=== PATIENT | female | born 1990 | race Caucasian/White ===

== ENCOUNTER 2019-02-25 14:37 | Emergency (ER) | payer OTHER ==
--- OUTSIDE RECORDS SUMMARY | 2019-02-25 14:50 | XMS REPORT | Continuity of Care Document ---
:1990 External Reference #:[id number] Author Name Deon Tillman NP (transmitted by agent of provider Latoya Li) Address [address] [place] [address], [place] [address] Care Team Providers Name Role Phone Patricia Camejo MD - Internal Medicine Care Team Information Electronics Engineering Technician [phone] Problems Description No Information Available Social History Type Date Description Comments Sex Unknown Allergies, Adverse Reactions, Alerts Description No Known Drug Allergies Medications Active Medications SIG Qnty Indications Ordering Date Provider Bupropion 1 by mouth every 60tabs F32.89 Deon Tillman NP 02/16/2019 Hydrochloride ER (XL) day. If tolerated after 1 week 150mg Tablets ER 24HR increase to two tablets daily. History Medications No Active Medications Unknown 02/16/2019 - 02/16/2019 Immunizations Description No Information Available Vital Signs Date Vital Result Comment 02/16/2019 11:46am Height 65 inches 5'5" Weight 139.12 lb Heart Rate 57 /min BP Systolic 121 mmHg BP Diastolic 78 mmHg Body Temperature 97.8 F O2 % BldC Oximetry 98 % BMI (Body Mass Index) 23.1 kg/m2 Results Description No Information Available Procedures Description No Information Available Medical Devices Description No Information Available Encounters Description No Information Available Assessments Date Code Description Provider 02/16/2019 R53.83 Other fatigue Deon Tillman NP 02/16/2019 F32.89 Other specified depressive episodes Deon Tillman NP 02/16/2019 N92.6 Irregular menstruation, unspecified Deon Tillman NP 02/16/2019 Z13.220 Encounter for screening for lipoid disorders Deon Tillman NP Plan of Treatment Future Appointment(s):03/16/2019 8:40 am - [facility] - Deon Tillman, NPR53.83 Other fatigueComments:I am ordering some lab work to evaluate your symptoms. I will notify you of the results.Follow up:LARRY: Dr. João Salinas, [facility] Aleydajame Ortegay, [facility] (certified nurses aide)F32.89 Other specified depressive episodesNew Medication:Bupropion Hydrochloride ER (XL) 150 mg - 1 by mouth every day. If tolerated after 1 week increase totwo tablets daily.Comments: Start taking the bupropion daily.Follow up:4 fpcgnD14.6 Irregular menstruation, unspecifiedComments:Let me know the name of the control you were taking and I will prescribe that. If there is no change I will refer you to a woman's health specialist.Z13.220 Encounter for screening for lipoid disorders Functional Status Description No Information Available Mental Status Description No Information Available Referrals Description No Information Available
[2019-02-25] MEDS ORDERED: Lorazepam PYXIS KEY PRN ×2 (15:01→15:07)
[2019-02-25] MEDS ORDERED: LORazepam INJ* 2 MG/ML 1 ML VIAL IV PUSH ONE ×2 (15:01→15:07)
--- NOTE | 2019-02-25 15:03 | UC ---
Psychiatric Complaint HPI - HPI Summary HPI Summary: The patient is a 28 yo female that presents here for evaluation of a bupropion XL She states she was seen by her PCP last week and started on bupropion XL 150 mg daily for anxiety and depression Last PM she started drinking about 8PM until 2AM drinking one bottle of wine and some vodka. She took 8 bupropion XL 150mg pills between about 10 PM and 2 AM. She was not trying to harm herself but was seeing if it would make her happy. She may have passed out around 2 briefly. She has been up since then. She has had palpitations and tremors as well as a dry mouth. She says her symptoms have improved slightly over the past hour. No dyspnea or NICHOLE. No n/v/d - History Of Current Complaint Chief Complaint: EDOverdose Stated Complaint: POSSIBLE OVERDOSE Time Seen by Provider: 02/25/19 14:51 Hx Obtained From: Patient Onset/Duration: Gradual Onset Timing: Constant Severity Initially: Moderate Severity Currently: Mild Character: Anxious Aggravating Factor(s): Alcohol Use, Other - see HPI Alleviating Factor(s): Nothing Related History: Positive For: Prior Psychiatric Issues Ingestion History: Type/Name Of Drug - bupropion XL, Approximate Time Of Ingestion - btw 10PM and 2AM ( 8 150mg tabs) - Allergies/Home Medications Allergies/Adverse Reactions: Allergies Allergy/AdvReac Type Severity Reaction Status Date / Time No Known Allergies Allergy Verified 10/10/15 11:35 PMH/Surg Hx/FS Hx/Imm Hx Previously Healthy: Yes Psychological History: Anxiety, Depression - Surgical History Surgical History: None - Family History Known Family History: Positive: None, Unknown, Other - brother with psychiatric issues - Social History Alcohol Use: Weekly Substance Use Type: Cocaine, Heroin, Synthetic Drugs, Other Substance Use Comment - Amount & Last Used: reports hx of cocaine, meth, amphetamine, heroin, crack/ no use for past mo Smoking Status (MU): Light Every Day Tobacco Smoker Type: Cigarettes Amount Used/How Often: one cigarette less than once a week Have You Smoked in the Last Year: Yes Household Exposure Type: Cigarettes - Immunization History Most Recent Influenza Vaccination: 2014 Most Recent Tetanus Shot: UTD Most Recent Pneumonia Vaccination: has not received Review of Systems All Other Systems Reviewed And Are Negative: Yes Constitutional: Positive: Negative Skin: Positive: Negative Eyes: Positive: Negative ENT: Positive: Other - dry mouth Respiratory: Positive: Negative Cardiovascular: Positive: Palpitations Gastrointestinal: Positive: Negative Genitourinary: Positive: Negative Motor: Positive: Negative Neurovascular: Positive: Negative Musculoskeletal: Positive: Negative Psychological: Positive: Anxious Physical Exam Triage Information Reviewed: Yes Appearance: No Pain Distress, Well-Nourished Vital Signs: Initial Vital Signs Temp 100 F 02/25/19 14:56 Pulse 100 02/25/19 14:56 Resp 18 02/25/19 14:56 BP 147/98 02/25/19 14:56 Pulse Ox 100 02/25/19 14:56 Vital Signs Reviewed: Yes Eyes: Positive: Conjunctiva Clear ENT: Positive: Hearing grossly normal, Uvula midline. Negative: Pharyngeal erythema, Nasal congestion, Nasal drainage, Trismus, Muffled voice, Hoarse voice Dental Exam: Normal Neck: Positive: Supple Respiratory: Positive: Lungs clear, Normal breath sounds, No respiratory distress, No accessory muscle use Cardiovascular: Positive: RRR, Tachycardia Abdomen Description: Positive: Nontender Bowel Sounds: Positive: Present Musculoskeletal: Positive: ROM Intact, No Edema Neurological: Positive: Alert, Other: - GCS15/15, hyper reflexic Psychological Exam: Normal Skin Exam: Normal Diagnostics - EKG Cardiac Rate: NL Cardiac Rhythm: Sinus: Normal Ectopy: None ST Segment: Normal EKG Comparison: No Significant Change Psych Complaint Course/Dx - Course Course Of Treatment: D/W poison control they state at this dose she is at risk for seizures and cardiac issues and needs 24 hour monitoring D/W ER attending will transfer to [facility] [place] - Differential Dx/Diagnosis Provider Diagnosis: Overdose Discharge ED - Sign-Out/Discharge Documenting (check all that apply): Patient Departure All imaging exams completed and their final reports reviewed: No Studies - Discharge Plan Condition: Stable Disposition: TRANS HIGHER L OF CARE FAC Referrals: Deon Tillman NP [Primary Care Provider] - - Billing Disposition and Condition Condition: STABLE Disposition: Trans Higher Lvl of Care Fac
[2019-02-25] MEDS ORDERED: Lorazepam PYXIS KEY ONE (15:05)
[2019-02-25] MEDS ORDERED: NS 0.9% 1000 ML** 1,000 ML IV ONE (15:18)
[2019-02-25 15:22] VITALS: BP 141/81
== END 2019-02-25 16:00 | disposition short-term general hospital (02) ==
LOC: UCEAST 14:37
DX: T43.291A Poisoning by other antidepressants, accidental (unintentional), initial encounter (principal); F17.210 Nicotine dependence, cigarettes, uncomplicated; F41.9 Anxiety disorder, unspecified; Y92.9 Unspecified place or not applicable
CPT/HCPCS: 93005; J2060

== ENCOUNTER 2019-02-25 15:57 | Observation (INO) | payer OTHER ==
[2019-02-25] MEDS ORDERED: NS 0.9% 1000 ML** 1,000 ML IV ONE (16:06)
--- NOTE | 2019-02-25 16:10 | ED ---
Substance Abuse/Use - HPI Summary HPI Summary: This patient is a 28 year old F brought to [facility] by EMS with a chief complaint of substance overdose since last midnight, 02/25/19. Patient reports she took 8 pills of Wellbutrin (which she started taking for anxiety) (took for about a week so far) when she was intoxicated to see how it would feel. Pt reports she could not feel her legs earlier today and felt near-syncopal. She went to urgent care, where poison control was contacted and she was sent to ED for eval. Pt reports she never took more medications than prescribed in the past. Denies SI/HI. Pt reports admission 2 years ago due to psychiatric reasons. Hx seizure (was not put on medication). Pt currently has temp of 100. Denies infectious symptoms. - History Of Current Complaint Stated Complaint: POSS OVERDOSE PER EMS Time Seen by Provider: 02/25/19 15:59 Hx Obtained From: Patient Hx Last Menstrual Period: 1 YEAR Ingestion History: Type/Name Of Drug - Wellbutrin, Amount Ingested - 8 pills, Approximate Time Of Ingestion - midnight Overdose Characteristics: Oral Aggravating Factor(s): Nothing Alleviating Factor(s): Nothing Associated Signs And Symptoms: Other: - near syncope, numbness in legs, fever - Allergies/Home Medications Allergies/Adverse Reactions: Allergies Allergy/AdvReac Type Severity Reaction Status Date / Time No Known Allergies Allergy Verified 02/25/19 16:05 PMH/Surg Hx/FS Hx/Imm Hx Endocrine/Hematology History: Denies: Hx Diabetes, Hx Thyroid Disease Cardiovascular History: Denies: Hx Hypertension Respiratory History: Denies: Hx Asthma, Hx Chronic Obstructive Pulmonary Disease (COPD) GI History: Denies: Hx Ulcer Sensory History: Reports: Hx Contacts or Glasses - glasses for long distance/ driving Opthamlomology History: Reports: Hx Contacts or Glasses - glasses for long distance/driving Neurological History: Reports: Hx Migraine - last one four months ago Psychiatric History: Reports: Hx Anxiety, Hx Depression, Hx Community Mental Health Tx - recently connected with outpatient tx, Hx Substance Abuse Denies: Hx Attention Deficit Hyperactivity Disorder, Hx Eating Disorder, Hx Panic Disorder, Hx Post Traumatic Stress Disorder, Hx Schizophrenia, Hx Bipolar Disorder, Hx of Violent Episodes Against Others Comment Only: Hx Inpatient Treatment - this is patient's first admission, Hx Suicide Attempt - currently admitted for first admit Infectious Disease History: Denies: Hx Hepatitis, Hx Human Immunodeficiency Virus (HIV) - Family History Known Family History: Positive: None, Unknown, Other - brother with psychiatric issues - Social History Alcohol Use: Weekly Hx Substance Use: Yes Substance Use Type: Reports: Cocaine, Heroin, Synthetic Drugs, Other Substance Use Comment - Amount & Last Used: reports hx of cocaine, meth, amphetamine, heroin, crack/ no use for past mo Hx Tobacco Use: Yes Smoking Status (MU): Light Every Day Tobacco Smoker Type: Cigarettes Amount Used/How Often: one cigarette less than once a week Have You Smoked in the Last Year: Yes Review of Systems Positive: Fever Neurological: Other - near-syncope Positive: Numbness - in legs Positive: Other - denies SI/HI, substance overdose All Other Systems Reviewed And Are Negative: Yes Physical Exam - Summary Physical Exam Summary: Constitutional: Well-developed, Well-nourished, Alert. (-) Distressed Skin: Warm, Dry HENT: Normocephalic; Atraumatic Eyes: Conjunctiva normal Neck: Musculoskeletal ROM normal neck. (-) JVD, (-) Stridor, (-) Nuchal rigidity Cardio: Rhythm regular, rate normal, Heart sounds normal; Intact distal pulses; Radial pulses are 2+ and symmetric. (-) Murmur Pulmonary/Chest wall: Effort normal. (-) Respiratory distress, (-) Wheezes, (-) Rales Abd: Soft, (-) tenderness, (-) Distension, (-) Guarding, (-) Rebound Musculoskeletal: (-) Edema Lymph: (-) Cervical adenopathy Neuro: Alert, Oriented x3, no clonus. Psych: Mood and affect Normal, denies SI Triage Information Reviewed: Yes Vital Signs Reviewed: Yes Procedures - Sedation Patient Received Moderate/Deep Sedation with Procedure: No Diagnostics - Laboratory Result Diagrams: 02/26/19 07:52 02/26/19 07:52 Lab Statement: Any lab studies that have been ordered have been reviewed, and results considered in the medical decision making process. Course/Dx - Course Course Of Treatment: 28-year-old female who presents with wellbutrin overdose. No e/o serotonin syndrome on exam (wellbutrin is not SSRI). 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 If QTC >500 give magnesium 2 g. If QRS prolonged, call poison control. Needs 24 hour observation, would benefit from psychiatric evaluation afterwards. - Diagnoses Provider Diagnoses: Overdose - Physician Notifications Discussed Care Of Patient With: Ijeoma Jordan Time Discussed With Above Provider: 17:30 Instructed by Provider To: Admit As Inpatient Discharge ED - Sign-Out/Discharge Documenting (check all that apply): Patient Departure - admit - Discharge Plan Condition: Stable Disposition: ADMITTED TO [facility] - Billing Disposition and Condition Condition: STABLE Disposition: Admitted to [facility] - Attestation Statements Document Initiated by Scribe: Yes Documenting Scribe: Christa Maher Provider For Whom Chaz is Documenting (Include Credential): Dr. Kyle Wellington MD Scribe Attestation: Christa Collazo, scribed for Dr. Kyle Wellington MD on 02/26/19 at 0952. Scribe Documentation Reviewed: Yes Provider Attestation: The documentation as recorded by the Christa anand accurately reflects the service I personally performed and the decisions made by me, Dr. Kyle Wellington MD Status of Scribe Document: Viewed
[2019-02-25 17:06] LABS: ABS Lymphocytes 1.3 10^3/ul (1.0-4.8); ABS Monocytes 0.6 10^3/ul (0-0.8); Eosinophil % 0.1 %; Hematocrit 37 % (35-47); Hemoglobin 12.1 g/dL (12.0-16.0); Lymphocyte % 16.5 %; Mean Corpuscular HGB Conc 33 g/dL (31-36); Mean Corpuscular Hemoglobin 28 pg (27-31); Mean Corpuscular Volume 86 fL (80-97); Mean Platelet Volume 8.5 fL (7.4-10.4); Nucleated Red Blood Cells % 0.1; Platelet Count 232 10^3/uL (150-450); Red Blood Count 4.28 10^6 /uL (3.70-4.87); Red Cell Distribution Width 17 % (10-15); White Blood Count 7.9 10^3/uL (3.5-10.8)
[2019-02-25 17:22] LABS: Acetaminophen < 15 mcg/mL; Alcohol < 10 mg/dL (<10); Salicylate < 2.50 mg/dL (<30)
[2019-02-25 17:25] LABS: ALT 16 U/L (7-52); AST 15 U/L (13-39); Albumin 4.3 g/dL (3.2-5.2); Albumin/Globulin Ratio 1.9 (1-3); Alkaline Phosphatase 44 U/L (34-104); Anion Gap 7 mmol/L (2-11); BUN/Creatinine Ratio 12.3 (8-20); Blood Urea Nitrogen 8 mg/dL (6-24); CO2 Carbon Dioxide 26 mmol/L (22-32); Calcium 9.2 mg/dL (8.6-10.3); Chloride 107 mmol/L (101-111); EGFR African American 133.3 (>60); EGFR Non-African American 110.2 (>60); Globulin 2.3 g/dL (2-4); Glucose 93 mg/dL (70-100); Potassium 3.7 mmol/L (3.5-5.0); Sodium 140 mmol/L (135-145); Total Protein 6.6 g/dL (6.4-8.9)
[2019-02-25 17:31] LABS: HCG Pregnancy < 0.60 mIU/mL
[2019-02-25 17:37] LABS: Urine Appearance Clear; Urine Bilirubin Negative (Negative); Urine Blood Negative (Negative); Urine Color Straw; Urine Glucose Negative (Negative); Urine Ketones Negative (Negative); Urine Nitrite Negative (Negative); Urine Protein Negative (Negative); Urine Specific Gravity 1.003 (1.010-1.030); Urine Urobilinogen Negative (Negative)
[2019-02-25 17:59] LABS: Urine Benzodiazepine Screen None Detected (None Detect); Urine Opiates Screen None Detected (None Detect)
[2019-02-25] MEDS ORDERED: LORazepam INJ* 2 MG/ML 1 ML VIAL IV PUSH PRN (18:10)
[2019-02-25] MEDS ORDERED: Lorazepam PYXIS KEY PRN (18:10)
--- NOTE | 2019-02-25 21:39 | HP ---
CC: Deon Tillman NP * HISTORY AND PHYSICAL: DATE OF ADMISSION: 02/25/19 PRIMARY CARE PROVIDER: Deon Tillman NP ATTENDING PHYSICIAN: Dr. Ijeoma Jordan.* (DICTATED BY AMINTA ZELAYA NP) CHIEF COMPLAINT: Shakiness and numbness. HISTORY OF PRESENT ILLNESS: Ms. Parham is a 28-year-old female with a past medical history of anxiety, depression, and migraines, who presented to the emergency room today after an intentional overdose last night. The patient reports that she drank 1 bottle of wine and unknown amount of vodka. She does admit that she is a binge drinker, though only drinks approximately once per month. When she was intoxicated, she took a handful of bupropion in a "drunken impulse." She took the medication with the intention of getting high and having "fun." The patient denies any suicidal ideations and has no history of suicidal ideations or suicide attempts. She did count her pills and notes that she took approximately 1200 mg of bupropion at some point last night; the exact time is unclear. This morning, she woke and felt very shaky. She felt as though her legs were numb and she was having somewhat of a difficult time walking. Walking and pacing did relieve the numbness, though as soon as she stopped walking, the numbness returned. She was also feeling quite shaky, had a very difficult time putting her shoes on. She does describe some feelings of lightheadedness and possible near syncope. She denies any chest pain, palpitations, shortness of breath, neurological deficits, or visual complaints. In the emergency room, the patient had lab work, which was unremarkable. Vital signs were noted to be stable. Poison Control was contacted and they recommended monitoring the patient on telemetry for at least 24 hours; the start time of about being 1500 today. Additional instructions were to give 2 g of magnesium sulfate if the QTc is greater than 500 and then call Poison Control. Additionally if the QRS widens, Poison Control will need to be contacted. Because of the need for overnight monitoring, the hospitalist service was asked to evaluate for admission. PAST MEDICAL HISTORY: 1. Anxiety. 2. Depression. 3. Migraines. PAST SURGICAL HISTORY: None. HOME MEDICATIONS: 1. Bupropion XL 150 mg p.o. daily. 2. Microgestin FE 05/21 one tab p.o. daily. ALLERGIES: No known drug allergies. FAMILY HISTORY: The patient reports a brother with mental illness and some distant family history of alcoholism. Family history is otherwise noncontributory. SOCIAL HISTORY: The patient denies any tobacco use. She reports binge drinking approximately once per month. She denies any current drug use, though has used "almost everything" in the past. She did admit to cocaine, methamphetamine, and heroin use in the past. She currently works in [employer] at [employer] and lives alone in an apartment. The patient's mother will be her surrogate decision maker in the event she is unable to make her own decisions. REVIEW OF SYSTEMS: An 11-point review of systems was performed and all the pertinent positive and negative findings are in the HPI. All other systems are negative. PHYSICAL EXAMINATION GENERAL: Ms. Parham is a well-developed, well-nourished, young, adult female, sitting in bed, in no acute distress. She appears her stated age, she is calm and cooperative. VITAL SIGNS: Temp 100.0, heart rate 67, respiratory rate 25, oxygen saturation 100% on room air, and blood pressure 133/85. HEENT: Head is atraumatic, normocephalic. Visual [place] are grossly intact. Pupils are equal, round, and reactive to light and accommodation. Extraocular movements intact. RESPIRATORY: Symmetrical chest expansion. Lungs clear to auscultation throughout. No rhonchi, wheezes, or rubs. CARDIOVASCULAR: Regular rate and rhythm. S1, S2 present. No murmurs, rubs, or gallops. EXTREMITIES: Skin is warm and smooth bilaterally. No edema. NEURO: Awake, alert, and oriented x4. Cranial nerves II through XII grossly intact. Moves all extremities. Strength is 5/5 in upper and lower extremities bilaterally. There are no focal neurological deficits. DIAGNOSTIC STUDIES/LAB DATA: WBC 7.9, RBC 4.28, hemoglobin 12.1, hematocrit 37 , platelets 232. Sodium 140, potassium 3.7, chloride 107, carbon dioxide 26, BUN 8, creatinine 0.65, glucose 93, lactic acid 2. Urinalysis unremarkable. Urine tox screen unremarkable including salicylates, acetaminophen, and alcohol. EKG shows normal sinus rhythm with a rate of 75, no ST changes, QTc 470. ASSESSMENT AND PLAN: Ms. Parham is a 28-year-old female with past medical history of anxiety, depression, and migraines, who presents to the emergency room today after an intentional overdose of bupropion. The patient will be admitted to observation for: 1. Overdose. The patient adamantly denies any suicidal ideations or attempts and reports that she was just taking the medication for "fun." She additionally has no history of suicidal ideation or attempt, so at this point, I do not think she needs any one-to-one monitoring. Per Poison Control recommendations, the patient will be monitored for at least 24 hours, which started today at 1500. I have ordered p.r.n. Ativan for any tremors or seizure activity. An EKG will be repeated in 4 hours and I have ordered an EKG for 2000 tonight. On the EKG, if the patient's QTc is greater than 500, she will need to be given 2 g of magnesium sulfate and Poison Control will need to be contacted. Additionally, if her QRS widens at all, Poison Control will need to be contacted. I have also ordered seizure precautions as she is at increased risk for seizures. I have ordered a psych consult for tomorrow, though as long as they do not want to admit her to Psych, I anticipate that she will be discharged tomorrow. 2. Anxiety and depression. At this point, I will obviously hold the patient's bupropion. I will speak with Psychiatry tomorrow to determine if it is appropriate for her to resume this medication. 3. FEN. The patient does not require any fluid resuscitation or electrolyte repletion. I have ordered a regular diet. 4. Code status. The patient will be a full code. 5. DVT prophylaxis. According to the DVT Risk Assessment, the patient scores a 1, putting her at low risk. We will utilize ambulation for DVT prophylaxis. TIME SPENT: Approximately 40 minutes was spent on this admission, approximately half of that time spent [id number] with the patient obtaining my history, performing my physical exam, and reviewing the plan of care. This case has been reviewed with my attending, Dr. Jordan, who is in agreement with the plan of care. AMINTA ZELAYA, DIPLOMATIC INTERPRETER [id number]/[facility] #: [id number] FANI
[2019-02-26 08:12] LABS: ABS Lymphocytes 1.6 10^3/ul (1.0-4.8); ABS Monocytes 0.4 10^3/ul (0-0.8); ABS Neutrophils 2.9 10^3/ul (1.5-7.7); Eosinophil % 0.6 %; Hematocrit 36 % (35-47); Hemoglobin 11.8 g/dL (12.0-16.0); Lymphocyte % 31.5 %; Mean Corpuscular HGB Conc 33 g/dL (31-36); Mean Corpuscular Hemoglobin 28 pg (27-31); Mean Corpuscular Volume 86 fL (80-97); Mean Platelet Volume 8.4 fL (7.4-10.4); Nucleated Red Blood Cells % 0.1; Platelet Count 204 10^3/uL (150-450); Red Blood Count 4.19 10^6 /uL (3.70-4.87); Red Cell Distribution Width 16 % (10-15)
[2019-02-26 08:24] LABS: Albumin 4.1 g/dL (3.2-5.2); Albumin/Globulin Ratio 1.8 (1-3); BUN/Creatinine Ratio 9.9 (8-20); Calcium 9.2 mg/dL (8.6-10.3); EGFR African American 120.4 (>60); EGFR Non-African American 99.5 (>60); Globulin 2.3 g/dL (2-4); Potassium 3.8 mmol/L (3.5-5.0); Total Bilirubin 0.7 mg/dL (0.2-1.0); Total Protein 6.4 g/dL (6.4-8.9)
[2019-02-26 17:01] VITALS: BP 115/76
--- NOTE | 2019-02-26 18:25 | CONS ---
CONSULTATION REPORT: DATE OF CONSULT: 02/26/19 ATTENDING PHYSICIAN: Kiera Baker NP CONSULTING PHYSICIAN: Dr. Lew Crawley. REASON FOR CONSULT: Overdose on Wellbutrin. SUBJECTIVE HISTORY: The patient is a 28-year-old single white female with a known history of polysubstance dependence, who arrived at the ER reporting that she had drank a bottle of wine and some vodka the previous evening and while intoxicated took a handful of bupropion pills as a "drunken impulse." She denied any intention to harm herself; however, she was feeling shaky and numb and was sent from [facility] for further monitoring. At this point, the primary team is wondering what type of services would be required moving forward. I did meet with Ms. Parham on the telemetry unit of [address] [place] [address] where she presented as calm, cooperative, and somewhat embarrassed about her overdose. She indicates that while she was intoxicated, she found her bottle of Wellbutrin , which had just been prescribed 1 week ago by her primary care provider who is Deon Tillman. She wondered herself what it would be like if she took some. She thought that she only took 3 or 4; however, upon recounting her bottle, she now believes that she took 8. The patient does not recall any type of euphoric effect, but felt shaky when she sobered up and decided to come to [facility] from there. She steadfastly denies any suicidal ideations and states that life has been going good, although she continues to episodically binge on large amounts of alcohol. She indicates that she will do this 1 to 2 times per month. Although she has a significant history of illicit substance abuse in the past, she denies recent use of illegal drugs. The patient denies symptoms of depression, han, or psychosis. She is interested in perhaps utilizing a trial of naltrexone to reduce her dependence on alcohol. She is also willing to receive outpatient substance abuse treatment. PAST PSYCHIATRIC HISTORY: Ms. Parham had 1 previous brief psychiatric admission on the [facility] in October 2015 under the service of Dr. Naveen Goodwin following suicidal gesture made when she was similarly intoxicated. In the past, she had been treated with sertraline. More recently, she was just started on Wellbutrin XL 150 mg p.o. q.a.m. by her primary care provider, Deon Tillman. She denies any further interactions with the mental health system. SUBSTANCE ABUSE HISTORY: Quite extensive. The patient started abusing alcohol at the age of 15. At times, it has been heavy and daily, but has not necessarily led to severe consequences. She smoked marijuana fairly frequently in her teenage years and got involved in heavier drugs in college including crack cocaine, amphetamines, Adderall by diversion, and heroin intranasally. She has also used ecstasy and hallucinogenics like LSD and mushrooms between 30 and 40 times in her life. She denies any previous history of drug rehabilitation. PAST MEDICAL HISTORY: Significant for migraine headache. CURRENT MEDICATIONS: Include: 1. Bupropion XL 150 mg daily. 2. Microgestin FE 05/21 one tab p.o. daily. ALLERGIES: She has no known drug allergies. FAMILY HISTORY: The patient has a brother who has had anxiety and has been treated with sertraline. SOCIAL HISTORY: The patient is from [place] and came to the [facility] for college where she graduated at [employer]. Her parents are still together. She has 1 brother whom she still has a relationship with. 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 She lives in [place] in an apartment. She has no history of service. MENTAL STATUS EXAM: The patient is a thin-framed female in her mid 20s who is calm, cooperative, clean, polite. Speech has normal rate, tone, and volume. Mood appears to be euthymic with a full affect. Thought process is linear and goal directed. Thought content is significant for her desire to initiate naltrexone therapy for drinking. She denies suicidal or homicidal ideations. She denies auditory or visual hallucinations. Insight and judgment appear to be fair given her willingness to pursue outpatient substance abuse services. Cognitively, she is awake and alert with what would appear to be an average intellect. DIAGNOSES: Rock I: Alcohol use disorder. Rock II: Deferred. IMPRESSION: The patient is a 28-year-old single white female, college graduate with a history of polysubstance dependence, who has been largely abstinent from illicit drugs; however, she continues to abuse alcohol. She apparently ingested several tablets of recently prescribed Wellbutrin in an attempt to get high. At this time, she is inquiring about the use of naltrexone to reduce urges to consume alcohol and she is willing to be referred outpatient services for substance misuse. RECOMMENDATIONS TO PRIMARY TEAM: Psychiatry feels that the patient is psychiatrically clear for discharge. We see no justification for enhanced monitoring or psychiatric hospitalization. She is already being seen by the social work service and we recommend referral to the [facility] so that she can get alcohol-related services including perhaps initiation of naltrexone therapy for alcoholism. At this time, Psychiatry is signing off; however, we can be reconsulted in the event of any significant changes in the patient's presentation. Thank you for the consultation. [id number]/CPS #: [id number] FANI
--- NOTE | 2019-02-27 01:13 | DS ---
CC: Deon Tillman NP * DISCHARGE SUMMARY: DATE OF ADMISSION: 02/25/19 DATE OF DISCHARGE: 02/26/19 PRIMARY CARE PROVIDER: Deon Tillman NP. ATTENDING PHYSICIAN: Dr. Lillie Mclean.* (DICTATED BY AMINTA ZELAYA NP) PRIMARY DIAGNOSIS: Intentional overdose of bupropion. SECONDARY DIAGNOSES: 1. Anxiety. 2. Depression. 3. Migraines. STUDIES WHILE IN THE HOSPITAL: EKG on 02/25/19 shows normal sinus rhythm with a rate of 75, QTc 470. Next EKG on 02/25/19 shows normal sinus rhythm with a rate of 66, QTc 471. Next EKG on 02/26/19 shows normal sinus rhythm with a rate of 61, QTc 438. HISTORY OF PRESENT ILLNESS AND HOSPITAL COURSE: Ms. Parham is a 28-year-old female with past medical history of anxiety, depression, and migraines, who presented to the emergency room on 02/25/19 with complaints of shakiness and numbness. Please see the history and physical by myself for complete summary of the events leading up to this hospitalization. In short, the patient admitted to being a binge drinker and the night prior to presenting to the emergency room she did binge drink and in her intoxicated state decided to take a "handful" of bupropion with the intention of getting high. She denied any suicidal ideation or attempt. In the emergency room, Poison Control was contacted and they did recommend 24 hours of observation to monitor for any PERIOPERATIVE NURSE or cardiac effects. She was admitted by the hospitalist service. The patient had an uneventful night and was monitored on telemetry without any evidence of arrhythmias. Repeat EKGs were preformed to ensure that QTc was not greater than 500. The subjective shakiness that she was experiencing yesterday has since resolved. There have been no other neurological symptoms. Dr. Crawley from Psychiatry did see the patient today in consultation and he did not have any concerns about this being a suicide attempt. He felt as though it was reasonable for her to be discharged and did not make any recommendations for medication changes, although did indicate that she had some interest in starting disulfiram. On exam, she is alert and oriented x4. She has no focal neurological deficits. Heart: Regular rate and rhythm without Murmurs, rubs, or gallops. Lungs are clear to auscultation without rhonchi, wheezes, or rales. Physical exam is otherwise benign. Ms. Parham is stable for discharge today. Most recent vital signs are as follows: Temp 98.3, heart rate 61, respiratory rate 16, oxygen saturation 99% on room air, blood pressure 115/76. DISCHARGE MEDICATIONS: New medications: Disulfiram 250 mg p.o. daily. Continued medications: 1. Buspirone XL 150 mg p.o. daily. 2. Microgestin FE 1 tab p.o. daily. DISCHARGE PLAN: Ms. Parham will be discharged home. ACTIVITY: Will be as tolerated. DIET: Will be regular as tolerated. Per the patient's request, I have sent in a small supply of disulfiram and she is aware that she will need to follow up with her PCP for monitoring while she is on this medication and for any additional refills. She can continue her other usual medications. She was seen by our social workers who have provided her with some outpatient resources for substance and alcohol abuse. The patient should follow up with her primary care provider in the next 4 to 7 days. She has been advised to return to the emergency room or nearest hospital for any worsening of symptoms, shortness of breath, lightheadedness, dizziness, chest discomfort, high fevers, chills, night sweats, loss of consciousness, or any other worrisome signs or symptoms. DISCHARGE CONDITION: Stable. DISCHARGE DISPOSITION: Home. This is a summarized report of a complex medical history and hospital stay. For further details, please see the entire medical record. TIME SPENT: Approximately 40 minutes were spent on this discharge. AMINTA ZELAYA NP [id number]/CPS #: [id number] FANI
== END 2019-02-26 18:50 | disposition home or self-care (01) ==
LOC: ED 15:57 → MEDTELE 17:51
PROVIDERS: ADMIT Internal Medicine; ATTEND Internal Medicine
DX: T43.292A Poisoning by other antidepressants, intentional self-harm, initial encounter (principal); Y92.9 Unspecified place or not applicable; F17.210 Nicotine dependence, cigarettes, uncomplicated; F41.9 Anxiety disorder, unspecified; F32.9 Major depressive disorder, single episode, unspecified; G43.909 Migraine, unspecified, not intractable, without status migrainosus; R55 Syncope and collapse; F19.20 Other psychoactive substance dependence, uncomplicated
CPT/HCPCS: 36415; 80053; 80307; 80320; 80329; 81003; 83605; 84702; 85025; 93005; 96360; 99284; G0378; G0480

== ENCOUNTER 2019-06-10 03:02 | Emergency (ER) | payer OTHER ==
[2019-06-10 03:11] VITALS: BP 127/91
== END 2019-06-10 03:39 | disposition left against medical advice (07) ==
LOC: ED 03:02
DX: Z53.21 Procedure and treatment not carried out due to patient leaving prior to being seen by health care provider (principal); R11.10 Vomiting, unspecified
CPT/HCPCS: 99282